=== PATIENT | female | born 1995 | race Two or more races ===

== ENCOUNTER 2018-11-19 06:23 | Inpatient (IN) | payer MEDICAID ==
[~2018-11-19 06:23] MED LIST: Lactated Ringers 1,000 ML IV SCH; Sodium Chloride 0.9% 10 ML Syringe FLUSH PRN
[2018-11-19] MEDS ORDERED: Citric Acid/Sodium Citrate Solution 30 ML Cup ONE (07:16)
[2018-11-19] MEDS ORDERED: Scopolamine 1.5 MG Transdermal Patch ONE (07:16)
[2018-11-19] MEDS ORDERED: Citric Acid/Sodium Citrate Solution 30 ML Cup PO ONE (07:30)
[2018-11-19] MEDS ORDERED: Scopolamine 1.5 MG Transdermal Patch TRDERM ONE (07:30)
[2018-11-19] MEDS ORDERED: ceFAZolin 2 GM in Premix Bag 1 BAG IV ONE (08:00)
[2018-11-19] MEDS ORDERED: diphenhydrAMINE 50 MG/ML SDV IVPUSH ONE (09:54)
[2018-11-19] MEDS ORDERED: Oxytocin 10 Units/1 ML SDV IV ONE (09:54)
[2018-11-19] MEDS ORDERED: Midazolam 1 MG/ML 2 ML SDV IV ONE (09:54)
[2018-11-19] MEDS ORDERED: Morphine PF 10 MG/10 ML SDV IV ONE (09:54)
[2018-11-19] MEDS ORDERED: fentaNYL 100 MCG/2 ML SDV IV ONE (09:54)
[2018-11-19] MEDS ORDERED: Naloxone 0.4 MG/ML SDV IVPUSH PRN (10:30)
[2018-11-19] MEDS ORDERED: diphenhydrAMINE 50 MG/ML SDV IVPUSH PRN (10:30)
[2018-11-19] MEDS ORDERED: ePHEDrine 50 MG/ML SDV IVPUSH PRN (10:30)
[2018-11-19] MEDS: Lactated Ringers 1,000 ML IV SCH ×4 (11:00→23:33)
[2018-11-19] MEDS ORDERED: Ketorolac 30 MG/ML SDV IVPUSH SCH (14:30)
--- NOTE | 2018-11-19 16:43 | OR ---
DATE OF OPERATION: 11/19/2018 SURGEON: Isma Guo MD PREOPERATIVE DIAGNOSIS: Repeat delivery. POSTOPERATIVE DIAGNOSIS: Repeat lower uterine segment section. DEPUTY CHIEF SHERIFF: Masoud Johnson MD and medical student, Monica. ANESTHESIA: Spinal. PERMIT: The patient accepted the risks and benefits of this procedure. PROCEDURE IN DETAIL: The patient was taken to the OR, where she was draped and prepped in the usual sterile fashion after spinal anesthesia was obtained. She was laid in the supine position with the leftward tilt. Thereafter, a Pfannenstiel incision was made along the previous scar. The rectus fascia was encountered, scored in the middle and cut laterally using Sanchez scissors. Using Yuly clamps, the inferior and superior portions were tented and the rectus fascia was dissected sharply from the muscle. The rectus muscles were in the middle and the peritoneum entered sharply, making sure to avoid internal organs. A bladder blade was inserted and bladder reflection of the visceral peritoneum was fashioned. Lower uterine segment incision was made and extended digitally. The baby was then delivered without difficulty. The cord was cut and clamped. The baby was handed to the nurses. Attention was turned to the mother where the uterus was exteriorized after removing the placenta. All the debris and clots were cleaned with laps. I then closed the uterus in 2 layers, needing 3 [id number] stitches to achieve adequate hemostasis. There was a lateral extension to the vagina that was repaired. The rectus muscles were replaced and the fascia was closed with a 0 Vicryl. Thereafter the subcutaneous tissues of 3-0 were placed and abril were used to close the skin. Estimated blood loss was about 500 to 600 mL. The product was a viable female infant with score of 9 and 9. The patient got 2 g of Ancef before the incision. The patient and the baby are stable in the Labor And Delivery unit. /[id number] BILLIE/NABEEL
[2018-11-19] MEDS ORDERED: Lactated Ringers 1,000 ML IV ONE (17:35)
[2018-11-19] MEDS: Ketorolac 30 MG/ML SDV IVPUSH PRN (21:18)
[2018-11-20] MEDS: Lactated Ringers 1,000 ML IV SCH (03:33)
[2018-11-20] MEDS: Ketorolac 30 MG/ML SDV IVPUSH PRN (04:27)
[2018-11-20] MEDS ORDERED: Acetaminophen/HYDROcodone 325-5 MG Tab PO PRN (08:01)
[2018-11-20] MEDS: Ibuprofen 600 MG Tab PO SCH ×3 (08:30→20:06)
--- NOTE | 2018-11-20 09:08 | PCM.PNPP ---
- General Info Date of Service: 11/20/18 Subjective Update: She had a alot of oozing and bleeding from the right side of the incision yesterday, I came back and expressed copious amounts of dark black. Pressure was obtained and placed. Initially the urine output was very low, but after bolus of LR and continuation of 250 ml/hr ,that is improved this morning. Functional Status: Reports: Pain Controlled, Tolerating Diet - Review of Systems General: Reports: No Symptoms HEENT: Reports: No Symptoms Pulmonary: Reports: No Symptoms Cardiovascular: Reports: No Symptoms Gastrointestinal: Reports: No Symptoms Genitourinary: Reports: No Symptoms Musculoskeletal: Reports: No Symptoms Skin: Reports: No Symptoms Neurological: Reports: No Symptoms Psychiatric: Reports: No Symptoms - General Info Date of Service: 11/20/18 - Patient Data Vital Signs - Most Recent: Last Vital Signs Temp 97.3 F 11/20/18 04:30 Pulse 73 11/20/18 04:30 Resp 18 11/20/18 04:30 BP 138/89 11/20/18 04:30 Pulse Ox 95 11/20/18 04:30 Weight - Most Recent: 101.605 kg I&O - Last 24 Hours: Intake & Output 11/19/18 11/20/18 11/20/18 22:59 06:59 14:59 Intake Total 2000 1000 Output Total 250 1700 600 Balance 1750 -700 -600 Lab Results - Last 24 Hours: Laboratory Results - last 24 hr 11/20/18 Range/Units 05:48 WBC 10.4 (4.5-12.0) X10-3/uL RBC 3.73 (3.23-5.20) x10(6)uL Hgb 11.1 L (11.5-15.5) g/dL Hct 31.8 (30.0-51.3) % MCV 85.4 (80-96) fL MCH 29.8 (27.7-33.6) pg MCHC 34.9 (32.2-35.4) g/dL RDW 12.4 (11.5-15.5) % Plt Count 174 (125-369) X10(3)uL MPV 8.2 (7.4-10.4) fL Neut % (Auto) 68.4 (46-82) % Lymph % (Auto) 18.6 (13-37) % [place] % (Auto) 8.0 (4-12) % Eos % (Auto) 3 (1.0-5.0) % Baso % (Auto) 2 (0-2) % Neut # (Auto) 7.2 (1.6-8.3) # Lymph # (Auto) 1.9 (0.6-5.0) # [place] # (Auto) 0.8 (0.0-1.3) # Eos # (Auto) 0.3 (0.0-0.8) # Baso # (Auto) 0.2 (0.0-0.2) # Med Orders - Current: Current Medications Hydrocodone Bitart/Acetaminophen ([place] 325-5 Mg) 1 tab PO Q4H PRN PRN Reason: Pain Diphenhydramine HCl (Benadryl) 25 mg IVPUSH Q6H PRN PRN Reason: Itching or Nausea Ephedrine Sulfate (Ephedrine Sulfate) 5 mg IVPUSH ASDIRECTED PRN PRN Reason: Other Lactated Ringer's (Ringers, Lactated) 1,000 mls @ 250 mls/hr IV ASDIRECTED [facility] Last Admin: 11/20/18 03:33 Dose: 250 mls/hr Ibuprofen (Motrin) 600 mg PO Q6H [facility] Last Admin: 11/20/18 08:30 Dose: 600 mg Ketorolac Tromethamine (Toradol) 30 mg IVPUSH Q6H PRN PRN Reason: Pain Stop: 11/24/18 14:26 Last Admin: 11/20/18 04:27 Dose: 30 mg Naloxone HCl (Narcan) 0.1 mg IVPUSH ONETIME PRN PRN Reason: Respiratory Depression Sodium Chloride (Saline Flush) 10 ml FLUSH ASDIRECTED PRN PRN Reason: Keep Vein Open Discontinued Medications Citric Acid/Sodium Citrate (Bicitra Solution) Confirm Administered Dose 30 ml .ROUTE .STK-MED ONE Stop: 11/19/18 07:17 Last Admin: 11/19/18 07:28 Dose: Not Given Citric Acid/Sodium Citrate (Bicitra Solution) 30 ml PO ONETIME ONE Stop: 11/19/18 07:31 Last Admin: 11/19/18 07:43 Dose: 30 ml Cefazolin Sodium/Dextrose 2 gm (/ Premix) 50 mls @ 100 mls/hr IV ONETIME ONE Stop: 11/19/18 08:29 Last Admin: 11/19/18 07:44 Dose: 100 mls/hr Lactated Ringer's (Ringers, Lactated) 1,000 mls @ 125 mls/hr IV ASDIRECTED [facility] Last Admin: 11/19/18 23:34 Dose: 125 mls/hr Lactated Ringer's (Ringers, Lactated) 1,000 mls @ 999 mls/hr IV ONETIME ONE Stop: 11/19/18 18:35 Last Admin: 11/19/18 17:36 Dose: 999 mls/hr Ketorolac Tromethamine (Toradol) 30 mg IVPUSH Q6H [facility] Stop: 11/24/18 14:26 Last Admin: 11/19/18 14:39 Dose: 30 mg Scopolamine (Transderm-Scop) Confirm Administered Dose 1.5 mg .ROUTE .STK-MED ONE Stop: 11/19/18 07:17 Last Admin: 11/19/18 07:28 Dose: Not Given Scopolamine (Transderm-Scop) 1.5 mg TRDERM ONETIME ONE Stop: 11/19/18 07:31 Last Admin: 11/19/18 07:43 Dose: 1.5 mg - Infant Interaction Disposition, : [place] in Room with Family Support Person: Significant Other - Recovery Exam Fundal Tone: Firm Fundal Level: 1 Fingerbreadths Above Umbilicus Fundal Placement: Midline Lochia Amount: Moderate Lochia Color: Rubra/Red Perineum Description: Intact, Minimal Bruising/Swelling Episiotomy/Laceration: None Bladder Status: Indwelling Catheter in Place Urinary Elimination: Indwelling Catheter - Exam General: Alert, Oriented HEENT: Pupils Equal Neck: Supple Lungs: Clear to Auscultation, Normal Respiratory Effort Cardiovascular: Regular Rate, Regular Rhythm GI/Abdominal Exam: Normal Bowel Sounds, Soft, Non-Tender, No Organomegaly, No Distention, No Abnormal Bruit, No Mass, Pelvis Stable Extremities: Normal Inspection, Normal Range of Motion, Non-Tender, No Pedal Edema, Normal Capillary Refill Skin: Warm, Dry, Intact Wound/Incisions: Healing Well Neurological: No New Focal Deficit Psy/Mental Status: Alert, Normal Affect, Normal Mood - Problem List & Annotations (1) exam SNOMED Code(s): 013475346, 946989813 Code(s): Z39.2 - ENCOUNTER FOR ROUTINE FOLLOW-UP Status: Acute Current Visit: Yes (2) section wound complication SNOMED Code(s): 96916546 Code(s): O90.9 - COMPLICATION OF THE PUERPERIUM, UNSPECIFIED Status: Acute Current Visit: Yes - Problem List Review Problem List Initiated/Reviewed/Updated: Yes - My Orders Last 24 Hours: My Active Orders 11/19/18 10:30 Intake and Output [RC] 06,14,22 RT Incentive Spirometry [RC] Q4HWA Vital Signs [RC] 08,16,00 Lactated Ringers [Ringers, Lactated] 1,000 ml IV ASDIRECTED Naloxone [Narcan] 0.1 mg IVPUSH ONETIME PRN diphenhydrAMINE [Benadryl] 25 mg IVPUSH Q6H PRN ePHEDrine [ePHEDrine sulfate] 5 mg IVPUSH ASDIRECTED PRN Assess Uterine Involution [WOMSER] Per Unit Routine 11/19/18 14:40 Ketorolac [Toradol] 30 mg IVPUSH Q6H PRN 11/20/18 08:00 Insert Arriaza Catheter [Insert Urinary Catheter] [OM.PC] Q24H Peripheral IV Discontinue [OM.PC] Routine 11/20/18 08:01 Acetaminophen/HYDROcodone [Victor 325-5 MG] 1 tab PO Q4H PRN 11/20/18 09:00 Ibuprofen [Motrin] 600 mg PO Q6H 11/20/18 Breakfast Adult Diet [DIET] - Plan Plan:: We'll discontinue the Arriaza and IV fluids. Start oral narcotics for pain control. Ambulate. Regular diet.
[2018-11-21] MEDS: Ibuprofen 600 MG Tab PO SCH ×2 (02:57→09:32)
--- NOTE | 2018-11-21 09:04 | PCM.PNPP ---
- General Info Date of Service: 11/21/18 Subjective Update: Slept well. Has passed stool,gas. Normal intake. Wants to go home Functional Status: Reports: Pain Controlled, Tolerating Diet - Review of Systems General: Reports: No Symptoms HEENT: Reports: No Symptoms Pulmonary: Reports: No Symptoms Cardiovascular: Reports: No Symptoms Gastrointestinal: Reports: No Symptoms - General Info Date of Service: 11/21/18 - Patient Data Vital Signs - Most Recent: Last Vital Signs Temp 98.1 F 11/21/18 08:00 Pulse 65 11/21/18 08:00 Resp 18 11/21/18 08:00 BP 102/65 11/21/18 08:00 Pulse Ox 95 11/21/18 08:00 Weight - Most Recent: 101.605 kg Med Orders - Current: Current Medications Hydrocodone Bitart/Acetaminophen ([place] 325-5 Mg) 1 tab PO Q4H PRN PRN Reason: Pain Diphenhydramine HCl (Benadryl) 25 mg IVPUSH Q6H PRN PRN Reason: Itching or Nausea Ephedrine Sulfate (Ephedrine Sulfate) 5 mg IVPUSH ASDIRECTED PRN PRN Reason: Other Lactated Ringer's (Ringers, Lactated) 1,000 mls @ 250 mls/hr IV ASDIRECTED [facility] Last Admin: 11/20/18 03:33 Dose: 250 mls/hr Ibuprofen (Motrin) 600 mg PO Q6H [facility] Last Admin: 11/21/18 02:57 Dose: 600 mg Naloxone HCl (Narcan) 0.1 mg IVPUSH ONETIME PRN PRN Reason: Respiratory Depression Sodium Chloride (Saline Flush) 10 ml FLUSH ASDIRECTED PRN PRN Reason: Keep Vein Open Discontinued Medications Citric Acid/Sodium Citrate (Bicitra Solution) Confirm Administered Dose 30 ml .ROUTE .STK-MED ONE Stop: 11/19/18 07:17 Last Admin: 11/19/18 07:28 Dose: Not Given Citric Acid/Sodium Citrate (Bicitra Solution) 30 ml PO ONETIME ONE Stop: 11/19/18 07:31 Last Admin: 11/19/18 07:43 Dose: 30 ml Cefazolin Sodium/Dextrose 2 gm (/ Premix) 50 mls @ 100 mls/hr IV ONETIME ONE Stop: 11/19/18 08:29 Last Admin: 11/19/18 07:44 Dose: 100 mls/hr Lactated Ringer's (Ringers, Lactated) 1,000 mls @ 125 mls/hr IV ASDIRECTED [facility] Last Admin: 11/19/18 23:34 Dose: 125 mls/hr Lactated Ringer's (Ringers, Lactated) 1,000 mls @ 999 mls/hr IV ONETIME ONE Stop: 11/19/18 18:35 Last Admin: 11/19/18 17:36 Dose: 999 mls/hr Ketorolac Tromethamine (Toradol) 30 mg IVPUSH Q6H [facility] Stop: 11/24/18 14:26 Last Admin: 11/19/18 14:39 Dose: 30 mg Ketorolac Tromethamine (Toradol) 30 mg IVPUSH Q6H PRN PRN Reason: Pain Stop: 11/24/18 14:26 Last Admin: 11/20/18 04:27 Dose: 30 mg Scopolamine (Transderm-Scop) Confirm Administered Dose 1.5 mg .ROUTE .STK-MED ONE Stop: 11/19/18 07:17 Last Admin: 11/19/18 07:28 Dose: Not Given Scopolamine (Transderm-Scop) 1.5 mg TRDERM ONETIME ONE Stop: 11/19/18 07:31 Last Admin: 11/19/18 07:43 Dose: 1.5 mg - Infant Interaction Disposition, : [place] in Room with Family Support Person: Significant Other - Recovery Exam Fundal Tone: Firm Fundal Level: At Umbilicus Fundal Placement: Midline Lochia Amount: Small Lochia Color: Rubra/Red Perineum Description: Intact, Minimal Bruising/Swelling Episiotomy/Laceration: None Bladder Status: Indwelling Catheter in Place Urinary Elimination: Indwelling Catheter - Exam General: Alert, Oriented Lungs: Clear to Auscultation Cardiovascular: Regular Rate GI/Abdominal Exam: Normal Bowel Sounds, Soft Wound/Incisions: Healing Well, Dressing Dry and Intact Psy/Mental Status: Alert - Problem List & Annotations (1) exam SNOMED Code(s): 728006336, 639101729 Code(s): Z39.2 - ENCOUNTER FOR ROUTINE FOLLOW-UP Status: Acute Current Visit: Yes (2) section wound complication SNOMED Code(s): 03254493 Code(s): O90.9 - COMPLICATION OF THE PUERPERIUM, UNSPECIFIED Status: Acute Current Visit: Yes - Problem List Review Problem List Initiated/Reviewed/Updated: Yes - My Orders Last 24 Hours: My Active Orders 11/20/18 09:00 Ibuprofen [Motrin] 600 mg PO Q6H - Plan Plan:: DC home
--- NOTE | 2018-11-21 11:21 | DISCH ---
DISCHARGE DATE: 11/21/2018 REASON FOR ADMISSION: Repeat delivery. DISCHARGE DIAGNOSIS: Repeat delivery. BRIEF HISTORY AND HOSPITAL COURSE: This is a 23-year-old, who had a repeat C- section, admitted on the 19 of November for the procedure at term. She has done well postoperatively with the exception of some bleeding initially from the wound, which was controlled by pressure and opening up part of the wound. She is ready to go home today. I will discharge her home on hydrocodone to use one tablet q.6h p.r.n., 20 tablets. Continue with Motrin at home. FOLLOWUP: I advised her to see me in the office on Monday, November 26, 2018. Return to the ED with any worsening pain, fever, or wound drainage. I spent more than 35 minutes in the discharge of the patient. /[id number] BILLIE/NABEEL
== END 2018-11-21 09:55 | disposition home or self-care (01) | DRG 788 ==
LOC: FB.OB 06:23
PROVIDERS: ADMIT Family Medicine; ATTEND Family Medicine
PROC: 10D00Z1 Extraction of Products of Conception, Low, Open Approach (ICD-10-PCS; principal; 2018-11-19)
DX: O34.211 Maternal care for low transverse scar from previous cesarean delivery (principal); N85.8 Other specified noninflammatory disorders of uterus; Z3A.39 39 weeks gestation of pregnancy; Z37.0 Single live birth; O99.334 Smoking (tobacco) complicating childbirth; F17.210 Nicotine dependence, cigarettes, uncomplicated; O90.89 Other complications of the puerperium, not elsewhere classified
CPT/HCPCS: 36415; 85025; 86850; 86900; 86901; 88307; 94150; A9270-GY; J0690; J1200; J1885; J2250; J2270; J2590; J3010; J3490; J7120

== ENCOUNTER 2018-11-26 21:11 | Emergency (ER) | payer MEDICAID ==
--- NOTE | 2018-11-26 21:55 | EDM.PDOC ---
ED HPI GENERAL MEDICAL PROBLEM - General Chief Complaint: [employer] Problem Stated Complaint: FEVER/CSEC POSSIBLE INFECTION Time Seen by Provider: 11/26/18 21:35 Source of Information: Reports: Patient, Old Records History Limitations: Reports: No Limitations - History of Present Illness INITIAL COMMENTS - FREE TEXT/NARRATIVE: Jas Rasmussen is 6 days post repeat C section for full term , abril removed earlier today. This evening, her temp was 100.1 deg F without chills or sweats. She is not endorsing any excessive lochial discharge, abdominal pain, wound tenderness, or GI sxs. She has taken no meds. incisional Pain Score (Numeric/FACES): 7 - Related Data Allergies Allergy/AdvReac Type Severity Reaction Status Date / Time No Known Allergies Allergy Verified 11/18/18 10:15 Home Meds: Home Meds Clotrimazole/Betamethasone Dip [Lotrisone Cream] 1 applic TOP BID 11/18/18 [ History] Pnv No.95/Ferrous Fum/Folic AC [ Multivitamin Tablet] 1 tab PO DAILY 09/01 [History] Acetaminophen/HYDROcodone [[place] 325-5 MG] 1 tab PO Q4H PRN #20 tablet 11/21/18 [Rx] Ibuprofen [Motrin] 600 mg PO Q6H #30 tablet 11/21/18 [Rx] Past Medical History HEENT History: Reports: None Gastrointestinal History: Reports: Chronic Constipation [employer] History: Reports: Other [employer]TER History: - Past Surgical History HEENT Surgical History: Reports: Oral Surgery Female Surgical History: Reports: Section Other Female Surgeries/Procedures: X2 Social & Family History - Family History Family Medical History: Noncontributory - Tobacco Use Smoking Status *Q: Current Every Day Smoker Years of Tobacco use: 4 Packs/Tins Daily: 0.2 - Caffeine Use Caffeine Use: Reports: Coffee, Energy Drinks, Soda, Tea Other Caffeine Use: 3 - Recreational Drug Use Recreational Drug Use: No ED ROS GENERAL - Review of Systems Review Of Systems: ROS reveals no pertinent complaints other than HPI. ED EXAM, GENERAL - Physical Exam Exam: See Below Exam Limited By: No Limitations General Appearance: Alert, WD/WN, No Apparent Distress, Anxious Eye Exam: Bilateral Eye: EOMI, Normal Inspection, PERRL Ears: Normal External Exam Nose: Normal Inspection Throat/Mouth: Normal Inspection, Normal Lips, Normal Teeth, Normal Gums, Normal Oropharynx, Normal Voice Head: Normocephalic Neck: Normal Inspection, Supple Respiratory/Chest: Lungs Clear Cardiovascular: Normal Peripheral Pulses, Regular Rate, Rhythm, No Murmur GI/Abdominal: Normal Bowel Sounds, Soft, Non-Tender, No Organomegaly, No Distention, No Mass (Female) Exam: Deferred Rectal (Female) Exam: Deferred Back Exam: Normal Inspection Extremities: Normal Inspection Neurological: Alert, Oriented, CN II-XII Intact, Normal Cognition, Normal Gait, No Motor/Sensory Deficits Psychiatric: Normal Affect, Anxious Skin Exam: Warm, Dry, Intact, Normal Color, No Rash Lymphatic: No Adenopathy Course - Vital Signs Text/Narrative:: No new clinical findings on exam, no clinically significant fever. Last Recorded V/S: Last Vital Signs Temp 37.1 C 11/26/18 21:11 Pulse 90 11/26/18 21:11 Resp 12 11/26/18 21:11 BP 127/97 H 11/26/18 21:11 Pulse Ox 98 11/26/18 21:11 Departure - Departure Time of Disposition: 21:53 Disposition: Home, Self-Care 01 Condition: Good Clinical Impression: fever - Discharge Information *PRESCRIPTION DRUG MONITORING PROGRAM REVIEWED*: Not Applicable *COPY OF PRESCRIPTION DRUG MONITORING REPORT IN PATIENT LYNDA: Not Applicable Referrals: Katherine Washington PA-C [Primary Care Provider] - - Problem List & Annotations (1) fever SNOMED Code(s): 543798184, 643272675 Code(s): O86.4 - PYREXIA OF UNKNOWN ORIGIN FOLLOWING DELIVERY Status: Acute Current Visit: Yes Annotation/Comment:: Monitor temps and report any abnormalities to ED or PCP if needed. - Problem List Review Problem List Initiated/Reviewed/Updated: Yes - Assessment/Plan Plan: Follow up with PCP.
== END 2018-11-26 22:02 | disposition home or self-care (01) ==
LOC: FB.ED 21:11
DX: O86.4 Pyrexia of unknown origin following delivery (principal); O99.335 Smoking (tobacco) complicating the puerperium; F17.210 Nicotine dependence, cigarettes, uncomplicated
CPT/HCPCS: 99282

== ENCOUNTER 2022-02-20 04:12 | Emergency (ER) | payer MEDICAID ==
[2022-02-20] MEDS ORDERED: Alum Hydroxide/Mag Hydroxide 15 ML, Lidocaine 2% 15 ML PO ONE ×2 (04:35)
[2022-02-20] MEDS ORDERED: Aluminum Hydroxide/Magnesium Hydroxide Susp 30 ML Cup PO STA (04:50)
[2022-02-20] MEDS ORDERED: Acetaminophen 500 MG Tab PO ONE (04:50)
== END 2022-02-20 05:30 | disposition home or self-care (01) ==
LOC: FB.ED 04:12
DX: K20.90 Esophagitis, unspecified without bleeding (principal)
CPT/HCPCS: 36415; 84484; 93005; 99285; A9270